=== PATIENT | female | born 1975 | race African-American/Black ===

== ENCOUNTER 2023-09-25 15:16 | Emergency (ER) | payer MEDICAID ==
[~2023-09-25] VITALS: Ht 167.6 cm; Wt 87.0 kg
[2023-09-25 15:36] VITALS: BP 142/62; PULSE 90; RESP 18; TEMP 98.9; O2SAT 99
[2023-09-25] MEDS: AZITHROMYCIN 500 MG TABLET PO ONE (17:00)
[2023-09-25] MEDS: CEFTRIAXONE SODIUM 500MG VIAL IM ONE (17:00)
[2023-09-25 17:18] LABS: CLARITY URINE CLEAR (CLEAR); COLOR URINE YELLOW (YELLOW); GLUCOSE URINE NEGATIVE (NEGATIVE); KETONES URINE TRACE (NEGATIVE); LEUKOCYTE ESTERASE URINE 1+ (NEGATIVE); NITRITE URINE NEGATIVE (NEGATIVE); OCCULT BLOOD URINE NEGATIVE (NEGATIVE); PH URINE 5.5 (4.5-8.0); PROTEIN URINE NEGATIVE (NEGATIVE); SPECIFIC GRAVITY URINE 1.019 (1.005-1.030); UROBILINOGEN URINE 0.2 E.U./dL (0.2-1.0)
[2023-09-25 17:33] LABS: BACTERIA URINE NONE SEEN; RBC URINE 0-2 /hpf (0-2); SQUAMOUS EPITHELIAL CELL URINE 1+ /lpf (RARE/1+)
== END 2023-09-25 17:31 | disposition home or self-care (01) ==
LOC: ER 15:16
DX: R36.9 Urethral discharge, unspecified (principal); Z11.3 Encounter for screening for infections with a predominantly sexual mode of transmission
CPT/HCPCS: 99283; 87491; 87591; 81003; 96372; J0696